=== PATIENT | female | born 1985 | race Caucasian/White ===

== ENCOUNTER 2019-10-31 13:14 | Emergency (ER) | payer BC ==
[2019-10-31 13:23] VITALS: BP 124/93; PULSE 76
[2019-10-31] MEDS ORDERED: fentaNYL 100 MCG/2 ML SDV ONE (13:32)
[2019-10-31] MEDS ORDERED: Dextrose 5%-0.9% NaCl 1,000 ML ONE (13:32)
[2019-10-31] MEDS ORDERED: Midazolam 1 MG/ML 2 ML SDV ONE (13:32)
[2019-10-31] MEDS ORDERED: Metoclopramide 10 MG/2 ML SDV IVPUSH ONE (13:40)
[2019-10-31] MEDS ORDERED: HYDROmorphone 1 MG/ML Syringe IVPUSH ONE (13:40)
--- NOTE | 2019-10-31 13:49 | EDM.PDOC ---
ED HPI GENERAL MEDICAL PROBLEM - General Chief Complaint: Lower Extremity Injury/Pain Stated Complaint: R FOOT INJURY Time Seen by Provider: 10/31/19 13:42 History Limitations: Reports: No Limitations - History of Present Illness INITIAL COMMENTS - FREE TEXT/NARRATIVE: 43-year-old female presents to the ED with an acute injury to her right ankle late last night. She slipped on the driveway on the way up to the house and fell to the ground. She recognized that her ankle was badly injured and she could not weight-bear. She may didn't arouse and slept fairly well overnight. This morning she could not move the leg at all due to the severity of the pain. She tended the walk-in clinic at [facility] and x-rays confirmed a trimalleolar fracture of her ankle with an anterior dislocation of the tibia on the talus. Patient hasn't had anything to eat or drink since yesterday. There is no open fracture. Patient denies any chance of . Onset: Sudden Onset Date: 10/30/19 Onset Time: 23:00 Duration: Hour(s): Location: Reports: Lower Extremity, Right (Right ankle injury) Quality: Reports: Ache, Throbbing Severity: Severe (8 out of 10) Improves with: Reports: Rest Worsens with: Reports: Movement Context: Reports: Trauma (Slipped and fell on the ice last night.). 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 Right Ankle Pain Score (Numeric/FACES): 8 - Related Data Allergies Allergy/AdvReac Type Severity Reaction Status Date / Time adhesive tape Allergy Mild Rash Verified 04/03/16 14:54 Home Meds: Home Meds Albuterol [Ventolin HFA] 18 g 10/31/19 [History] Past Medical History - Past Health History Medical/Surgical History: Denies Medical/Surgical History Cardiovascular History: Reports: Angina, Arrhythmia Respiratory History: Reports: Asthma (Mild asthma usually exercise-induced.) Gastrointestinal History: Reports: Hemorrhoids Genitourinary History: Reports: Pyelonephritis, UTI, Recurrent 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: Reports: Musculoskeletal History: Reports: None Neurological History: Reports: None Psychiatric History: Reports: None Endocrine/Metabolic History: Reports: None Hematologic History: Reports: None Immunologic History: Reports: None Oncologic (Cancer) History: Reports: None Dermatologic History: Reports: Benign Melanoma - Past Surgical History HEENT Surgical History: Reports: Adenoidectomy, Other (See Below) (onsillectomy) GI Surgical History: Reports: Other (See Below) (Hemorrhoidectomy) Dermatological Surgical History: Reports: Skin Biopsy Social & Family History - Family History Cardiac: Reports: NV - Tobacco Use Smoking Status *Q: Current Some Day Smoker Years of Tobacco use: 20 Packs/Tins Daily: 0.2 - Caffeine Use Caffeine Use: Reports: Coffee - Recreational Drug Use Recreational Drug Use: No - Living Situation & Occupation Living situation: Reports: Occupation: Employed Review of Systems - Review of Systems Review Of Systems: See Below Constitutional: Reports: No Symptoms Eyes: Reports: No Symptoms Ears: Reports: No Symptoms Nose: Reports: No Symptoms Mouth/Throat: Reports: No Symptoms Respiratory: Reports: No Symptoms, Other Cardiovascular: Reports: No Symptoms GI/Abdominal: Reports: No Symptoms (Occasional bouts of asthma usually with an upper respiratory tract infection or sometimes with exercise) Genitourinary: Reports: No Symptoms Musculoskeletal: Reports: Other Skin: Reports: No Symptoms (Acute injury to her right ankle last night shortly before midnight) Neurological: Reports: No Symptoms Psychiatric: Reports: No Symptoms ED EXAM, GENERAL - Physical Exam Exam: See Below Exam Limited By: No Limitations General Appearance: Alert, WD/WN, Mild Distress, Other (In obvious discomfort. Temperature is 37.3 with a pulse of 76 and sinus respiratory rate of 22 with sats of 97% on room air. BP is 124/93.) Eye Exam: Bilateral Eye: Normal Inspection, PERRL Ears: Normal TMs Throat/Mouth: Normal Inspection, Normal Lips (Tongue is mildly dry and coated.) , Normal Teeth, Normal Oropharynx (Tonsils are absent), Other Head: Atraumatic, Normocephalic, Other Neck: Normal Inspection, Supple (No overt signs of head or facial trauma), Non- Tender, Full Range of Motion. No: Lymphadenopathy (L), Lymphadenopathy (R) Respiratory/Chest: No Respiratory Distress, Lungs Clear, Normal Breath Sounds, No Accessory Muscle Use, Chest Non-Tender Cardiovascular: Normal Peripheral Pulses, Regular Rate, Rhythm, No Edema, No Gallop, No Murmur, No Rub Peripheral Pulses: 2+: Posterior Tibial (R), Dorsalis Pedis (R), 3+: Posterior Tibial (L), Dorsalis Pedis (L) GI/Abdominal: Normal Bowel Sounds, Soft, Non-Tender, No Organomegaly, No Abnormal Bruit, No Mass, Pelvis Stable Back Exam: Normal Inspection, Full Range of Motion. No: CVA Tenderness (L), CVA Tenderness (R) Extremities: Normal Inspection, Normal Range of Motion, Non-Tender, No Pedal Edema, Normal Capillary Refill, Other (Patient has an obvious deformity with marked swelling and ecchymoses of her right ankle both laterally and medially. Reveal a trimalleolar fracture with significant displacement of the distal tibia anteriorly on the talus) Neurological: Alert, Oriented, CN II-XII Intact, Normal Cognition Psychiatric: Normal Affect, Normal Mood Skin Exam: Warm, Dry, Intact, Normal Color, No Rash ED TRAUMA EXTREMITY PROCEDURES - Joint Reduction Site: Other Sedation: Conscious Sedation (Ankle) Pre-Procedure NV Status: Normal Post-Procedure NV Status: Normal Technique: Traction/Counter Traction Number of Attempts: 2 Post-Reduction Imaging: Unacceptably Reduced, Fracture Seen Joint Reduction Complications: No - Splinting Right Lower Extremity Splint Site: Below knee Pre-Procedure NV Status: Normal Post-Procedure NV Status: Normal Splint Material: Fiberglass Splint Design: Stirrup, Posterior Applied & Form Fitted By: Provider Provider Post-Splint Application NV Check: NV Status Normal Complications: No ED PROCEDURAL SEDATION - Pre Procedure Indications: fracture reduction Preparations: procedure explained, consent signed, RT in room, oxygen, continuous pulse oximeter, suction, continuous cardiac cath technician, constant attendance - Physical Exam Airway: normal anatomy Cardiovascular: normal heart sounds Respiratory: normal breath sounds Neurological: alert Meilampati Classification: 1 (soft palate, anterior/posterior tonsillar pillars , uvula visible) - Procedure Sedation Sedation: versed (parenteral), fentanyl (4 mg or micrograms given in 250 g doses) ASA Classification: 1 (Normal healthy patient) - Intra Procedure Condition during procedure: lightly sedated, oxygenation stable Complications: none Reversal: none - Post Procedure Condition after procedure: alert, NAD, responds to verbal stimuli - Discharge Condition Patient returned to pre-procedure baseline: Yes Course - Vital Signs Last Recorded V/S: Last Vital Signs Temp 37.3 C 10/31/19 13:22 Pulse 76 01/03/20 13:22 Resp 22 H 10/31/19 13:22 BP 124/93 H 10/31/19 13:22 Pulse Ox 97 10/31/19 13:22 - Orders/Labs/Meds Labs: Laboratory Tests 10/31/19 10/31/19 10/31/19 Range/Units 04:51 14:40 14:40 WBC 10.27 H (3.98-10.04) K/mm3 RBC 4.65 (3.98-5.22) M/mm3 Hgb 13.9 (11.2-15.7) gm/dl Hct 41.3 (34.1-44.9) % MCV 88.8 (79.4-94.8) fl MCH 29.9 (25.6-32.2) pg MCHC 33.7 (32.2-35.5) g/dl RDW Std Deviation 42.4 (36.4-46.3) fL Plt Count 257 (182-369) K/mm3 MPV 9.6 (9.4-12.3) fl Neut % (Auto) 72.8 H (34.0-71.1) % Lymph % (Auto) 17.9 L (19.3-51.7) % Sabine % (Auto) 8.6 (4.7-12.5) % Eos % (Auto) 0.3 L (0.7-5.8) Baso % (Auto) 0.2 (0.1-1.2) % Neut # (Auto) 7.48 H (1.56-6.13) K/mm3 Lymph # (Auto) 1.84 (1.18-3.74) K/mm3 Sabine # (Auto) 0.88 H (0.24-0.36) K/mm3 Eos # (Auto) 0.03 L (0.04-0.36) K/mm3 Baso # (Auto) 0.02 (0.01-0.08) K/mm3 PT 10.5 (9.7-12.0) SECONDS INR 0.96 APTT 25 (22-31) SECONDS Sodium 142 (136-145) mEq/L Potassium 3.6 (3.5-5.1) mEq/L Chloride 105 (98-107) mEq/L Carbon Dioxide 23 (21-32) mEq/L Anion Gap 17.6 H (5-15) BUN 9 (7-18) mg/dL Creatinine 0.8 (0.55-1.02) mg/dL Est Cr Clr Drug Dosing 96.36 mL/min Estimated GFR (MDRD) > 60 (>60) mL/min BUN/Creatinine Ratio 11.3 L (14-18) Glucose 128 H (74-106) mg/dL Calcium 8.7 (8.5-10.1) mg/dL Total Bilirubin 0.4 (0.2-1.0) mg/dL AST 16 (15-37) U/L ALT 24 (14-59) U/L Alkaline Phosphatase 71 (46-116) U/L Total Protein 7.3 (6.4-8.2) g/dl Albumin 3.7 (3.4-5.0) g/dl Globulin 3.6 gm/dL Albumin/Globulin Ratio 1.0 (1-2) HCG, Qual (NEGATIVE) 10/31/19 Range/Units 14:40 WBC (3.98-10.04) K/mm3 RBC (3.98-5.22) M/mm3 Hgb (11.2-15.7) gm/dl Hct (34.1-44.9) % MCV (79.4-94.8) fl MCH (25.6-32.2) pg MCHC (32.2-35.5) g/dl RDW Std Deviation (36.4-46.3) fL Plt Count (182-369) K/mm3 MPV (9.4-12.3) fl Neut % (Auto) (34.0-71.1) % Lymph % (Auto) (19.3-51.7) % Sabine % (Auto) (4.7-12.5) % Eos % (Auto) (0.7-5.8) Baso % (Auto) (0.1-1.2) % Neut # (Auto) (1.56-6.13) K/mm3 Lymph # (Auto) (1.18-3.74) K/mm3 Sabine # (Auto) (0.24-0.36) K/mm3 Eos # (Auto) (0.04-0.36) K/mm3 Baso # (Auto) (0.01-0.08) K/mm3 PT (9.7-12.0) SECONDS INR APTT (22-31) SECONDS Sodium (136-145) mEq/L Potassium (3.5-5.1) mEq/L Chloride (98-107) mEq/L Carbon Dioxide (21-32) mEq/L Anion Gap (5-15) BUN (7-18) mg/dL Creatinine (0.55-1.02) mg/dL Est Cr Clr Drug Dosing mL/min Estimated GFR (MDRD) (>60) mL/min BUN/Creatinine Ratio (14-18) Glucose (74-106) mg/dL Calcium (8.5-10.1) mg/dL Total Bilirubin (0.2-1.0) mg/dL AST (15-37) U/L ALT (14-59) U/L Alkaline Phosphatase (46-116) U/L Total Protein (6.4-8.2) g/dl Albumin (3.4-5.0) g/dl Globulin gm/dL Albumin/Globulin Ratio (1-2) HCG, Qual Negative (NEGATIVE) Meds: Medications Discontinued Medications Generic Name Dose Route Start Last Admin Trade Name Freq PRN Reason Stop Dose Admin Fentanyl Confirm 10/31/19 13:32 10/31/19 15:37 Sublimaze Administered 10/31/19 13:33 Not Given Dose 100 mcg .ROUTE .STK-MED ONE Fentanyl 100 mcg 10/31/19 15:35 10/31/19 14:20 Sublimaze IVPUSH 10/31/19 15:36 100 mcg ONETIME ONE Administration Hydromorphone HCl 1 mg 10/31/19 13:40 10/31/19 13:53 Dilaudid IVPUSH 10/31/19 13:41 1 mg ONETIME ONE Administration Dextrose/Sodium Chloride Confirm 10/31/19 13:32 10/31/19 15:37 Dextrose 5%-Normal Saline Administered 10/31/19 13:33 Not Given Dose 1,000 mls @ as directed .ROUTE .STK-MED ONE Dextrose/Sodium Chloride 1,000 mls @ 250 mls/hr 10/31/19 15:45 10/31/19 13:53 Dextrose 5%-Normal Saline IV 250 mls/hr ASDIRECTED TYE Administration Metoclopramide HCl 7.5 mg 10/31/19 13:40 10/31/19 13:51 Reglan IVPUSH 10/31/19 13:41 7.5 mg ONETIME ONE Administration Midazolam HCl Confirm 10/31/19 13:32 10/31/19 15:37 Versed 1 Mg/Ml Administered 10/31/19 13:33 Not Given Dose 6 mg .ROUTE .STK-MED ONE Midazolam HCl 5 mg 10/31/19 15:35 10/31/19 14:20 Versed 1 Mg/Ml IVPUSH 10/31/19 15:36 5 mg ONETIME ONE Administration - Radiology Interpretation Free Text/Narrative:: 33-year-old female presents the ED with an acute injury to her right ankle. She did attend [facility] [facility] walk-in clinic and they did x-rays which confirmed a trimalleolar fracture of her right ankle. Injury occurred late last night after playing darts she was dropped off at her home and slipped on the ice on the driveway on the way to her home. She recognized that she cannot weight-bear and hopped into the house and states that she slept fairly well until early this morning when her ankle awoke her with severe pain. Denies hurting anything else. Not ate or drank since last night. After reviewing the films the tibia is significantly anteriorly dislocated on the talus and reduction is in order. I will attempt this in the ED under conscious sedation. - Re-Assessments/Exams Free Text/Narrative Re-Assessment/Exam: 10/31/19 14:45: I attempted to reduce the ankle under the conscious sedation using 4 mg of Versed and 100 g of fentanyl and portable films reveal that the reduction was less than acceptable. Lysed the splint which was a posterior slab from the clinic which did not provide significant dorsiflexion of the ankle to maintain position. A stirrup splint was also placed. I therefore spoke with Dr. Herman orthopedic surgeon at [facility] and he has agreed to see her in the ED at that facility as long as she remains nothing by mouth with plan to take her to surgery tonight. Free Text/Narrative Re-Assessment/Exam: 10/31/19 15:27 Total white count is 10.27 with 73% neutrophils on the auto differential. Hemoglobin is 13.9 with hematocrit of 41.3. Platelet count 257, 000 PT is 10.5 with an INR of 0.96. PTT is 25. Sodium 142 with a potassium of 3.6. Chloride is 105 with a bicarbonate of 23. And a gap is mildly elevated at 17.6. BUN is 9 with a creatinine of 0.8. GFR is greater than 60. Glucose 128 with a calcium of 8.7. Liver function is completely normal. Total protein 7.3 with an albumin fraction of 3.7. A urinalysis was never obtained. She'll be transported to [facility] ER department to see Dr. Herman by private vehicle since her mom is already here and willing to transport her. At present RM once services already in [place]. 10/31/19 16;10; test done by serum is negative. Departure - Departure Time of Disposition: 15:07 Disposition: DC/Tfer to Acute Hospital 02 Condition: Fair Clinical Impression: Closed trimalleolar fracture Ankle fracture, right Qualifiers: Encounter type: initial encounter Fracture type: closed Qualified Code(s): S82.891A - Other fracture of right lower leg, initial encounter for closed fracture - Discharge Information Instructions: Ankle Fracture, [id number] Referrals: PCP,None [Primary Care Provider] - Forms: ED Department Discharge Additional Instructions: Evaluation the emergency room today after being seen in the walk-in clinic with an acute injury to your right ankle last evening as you were walking into the your house and slipped on the ice. X-rays done at the clinic revealed a trimalleolar fracture of her ankle which was confirmed in the ER. Attempts to reduce the anterior dislocation of the tibia on the talus were unsuccessful in the emergency department. I have therefore discussed the case with orthopedic surgeon Dr. Herman at [facility] in [place] and he wishes you to travel with nothing to eat or drink to the emergency department there with plans to go to surgery shortly thereafter. Sepsis Event Note - Evaluation Sepsis Screening Result: No Definite Risk - Focused Exam Vital Signs: Vital Signs Temp Pulse Resp BP Pulse Ox 10/31/19 13:22 37.3 C 76 22 H 124/93 H 97 Date Exam was Performed: 10/31/19 Time Exam was Performed: 19:08
[2019-10-31] MEDS ORDERED: fentaNYL 100 MCG/2 ML SDV IVPUSH ONE (15:35)
[2019-10-31] MEDS ORDERED: Midazolam 1 MG/ML 2 ML SDV IVPUSH ONE (15:35)
[2019-10-31] MEDS ORDERED: Dextrose 5%-0.9% NaCl 1,000 ML IV SCH (15:45)
--- NOTE | 2019-10-31 16:12 | CR ---
Right ankle: Three views of the right ankle were obtained. Comparison: No prior ankle study. Comminuted medial malleolus fracture is noted. Lateral malleolus fracture is also noted as well as posterior malleolus fracture. Tibia is mildly dislocated anteriorly in relation to the talus. Ankle mortise is also asymmetric. Soft tissue swelling is noted. Impression: 1. Bimalleolar fracture. 2. Mild anterior dislocation of the tibia in relation to the talus. 3. Soft tissue swelling. Diagnostic code #3 This report was dictated in [place] Standard Time
== END 2019-10-31 15:25 ==
LOC: JD.ED 13:14
DX: S82.851A Displaced trimalleolar fracture of right lower leg, initial encounter for closed fracture (principal); F17.210 Nicotine dependence, cigarettes, uncomplicated; Z91.09 Other allergy status, other than to drugs and biological substances; W00.0XXA Fall on same level due to ice and snow, initial encounter
CPT/HCPCS: 27818; 36415; 73600; 80053; 84703; 85025; 85610; 85730; 96361; 96374; 96375; 99152; 99284; J1170; J2250; J2765; J3010; J7042

== ENCOUNTER 2020-10-19 07:07 | Day surgery (SDC) | payer BC ==
[~2020-10-19 07:07] MED LIST: Albuterol 0.083% 2.5 MG/3 ML Neb Soln NEB ONE; Lactated Ringers 1,000 ML IV SCH; Lidocaine 1%/Sod Bicarbonate in NS 8.4% 1 ML Syringe IDERM PRN; Sodium Chloride 0.9% 10 ML Syringe FLUSH PRN
[2020-10-19] MEDS ORDERED: Bupivacaine 0.5% 10 ML SDV ONE (07:20)
[2020-10-19] MEDS ORDERED: Lidocaine 1% with EPINEPHrine 1:100,000 20 ML MDV ONE (07:20)
[2020-10-19] MEDS ORDERED: Sodium Chloride 0.9% 50 ML SDV ONE (07:20)
[2020-10-19] MEDS ORDERED: Ondansetron 4 MG/2 ML SDV IVPUSH PRN ×2 (07:26→08:57)
[2020-10-19] MEDS ORDERED: diphenhydrAMINE 50 MG/ML SDV IVPUSH PRN (07:26)
[2020-10-19] MEDS ORDERED: fentaNYL 100 MCG/2 ML SDV IVPUSH PRN (07:26)
--- NOTE | 2020-10-19 07:26 | PCM.PREANE ---
Preanesthetic Assessment - Procedure Proposed Procedure: Total Vaginal Hysterectomy with bilateral salpingectomy nexplanon removal - Anesthesia/Transfusion/Family Hx Anesthesia History: Prior Anesthesia Without Reaction Family History of Anesthesia Reaction: No Transfusion History: No Prior Transfusion(s) Type of Transfusion Reactions: Reports: Unknown Intubation History: Unknown - Review of Systems General: No Symptoms Pulmonary: Other (summer allergies not current ) Cardiovascular: No Symptoms Gastrointestinal: No Symptoms Neurological: No Symptoms Other: Reports: Anxiety - Physical Assessment NPO Status Date: 10/18/20 NPO Status Time: 19:00 Height: 1.7 m ASA Class: 2 Dentition: Reports: Normal Dentition Thyro-Mental Finger Breadths: 3 Mouth Opening Finger Breadths: 4 ROM/Head Extension: Full Lungs: Clear to Auscultation, Normal Respiratory Effort Cardiovascular: Regular Rate, Regular Rhythm - Allergies Allergies/Adverse Reactions: Allergies Allergy/AdvReac Type Severity Reaction Status Date / Time No Known Allergies Allergy Verified 10/18/20 15:26 - Blood Blood Available: No - Anesthesia Plan Pre-Op Medication Ordered: None - Acknowledgements Anesthesia Type Planned: General Anesthesia Pt an Appropriate Candidate for the Planned Anesthesia: Yes Alternatives and Risks of Anesthesia Discussed w Pt/Guardian: Yes Pt/Guardian Understands and Agrees with Anesthesia Plan: Yes PreAnesthesia Questionnaire - Past Health History Medical/Surgical History: Denies Medical/Surgical History HEENT History: Reports: Allergic Rhinitis Cardiovascular History: Reports: Angina, Arrhythmia Respiratory History: Reports: Asthma Gastrointestinal History: Reports: Hemorrhoids Genitourinary History: Reports: Pyelonephritis, STD, UTI, Recurrent, Other (See Below) Other Genitourinary History: irregular uterine bleeding [employer] C[employer] 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: , Other (See Below) Other OB/BYN History: irregular uterine bleeding, bacterial vaginosis, CINI, HPV, chlamydia, , tricamoniasis Musculoskeletal History: Reports: None Neurological History: Reports: None Psychiatric History: Reports: Anxiety Endocrine/Metabolic History: Reports: None Hematologic History: Reports: None Immunologic History: Reports: None Oncologic (Cancer) History: Reports: None Dermatologic History: Reports: Benign Melanoma - Infectious Disease History Infectious Disease History: Reports: None - Past Surgical History Head Surgeries/Procedures: Reports: None HEENT Surgical History: Reports: Adenoidectomy Cardiovascular Surgical History: Reports: None Respiratory Surgical History: Reports: None GI Surgical History: Reports: None Endocrine Surgical History: Reports: None Neurological Surgical History: Reports: None Musculoskeletal Surgical History: Reports: None Oncologic Surgical History: Reports: None Dermatological Surgical History: Reports: None, Skin Biopsy - SUBSTANCE USE Tobacco Use Status *Q: Current Every Day Tobacco User Recreational Drug Use History: Yes Recreational Drug Type: Reports: Marijuana/Hashish - HOME MEDS Home Medications: Home Meds Albuterol [Ventolin HFA] 1 - 2 puff INH Q4H PRN 10/31/19 [History] Ibuprofen 200 - 600 mg PO Q6H PRN 10/18/20 [History] - CURRENT (IN HOUSE) MEDS Current Meds: Current Medications Lactated Ringer's (Ringers, Lactated) 1,000 mls @ 125 mls/hr IV ASDIRECTED TYE Lidocaine/Sodium Bicarbonate (Buffered Lidocaine 1% In Ns 8.4%) 0.25 ml IDERM ONETIME PRN PRN Reason: Prior to IV Start Sodium Chloride (Saline Flush) 10 ml FLUSH ASDIRECTED PRN PRN Reason: Keep Vein Open Discontinued Medications Albuterol (Proventil Neb Soln) 2.5 mg NEB ONETIME ONE Stop: 10/19/20 00:02
[2020-10-19] MEDS ORDERED: HYDROmorphone 0.5 MG/0.5 ML Syringe IVPUSH PRN (07:27)
[2020-10-19] MEDS ORDERED: Scopolamine 1.5 MG Transdermal Patch TRDERM ONE (07:28)
[2020-10-19] MEDS ORDERED: Dexamethasone 4 MG/ML 5 ML MDV ONE (07:33)
[2020-10-19] MEDS ORDERED: Ondansetron 4 MG/2 ML SDV ONE (07:33)
[2020-10-19] MEDS ORDERED: Lidocaine 1% 4 ML ONE (07:33)
[2020-10-19] MEDS ORDERED: Rocuronium 50 MG/5 ML Vial ONE (07:33)
[2020-10-19] MEDS ORDERED: Midazolam 1 MG/ML 2 ML SDV ONE (07:34)
[2020-10-19] MEDS ORDERED: fentaNYL 250 MCG/5 ML SDV ONE (07:34)
[2020-10-19] MEDS ORDERED: HYDROmorphone 0.5 MG/0.5 ML Syringe ONE ×2 (07:34→08:35)
[2020-10-19] MEDS ORDERED: Propofol 200 MG/20 ML SDV ONE ×2 (07:37)
[2020-10-19] MEDS ORDERED: ceFAZolin 1 GM Vial ONE (08:09)
[2020-10-19] MEDS ORDERED: Ketamine 500 mg/10 ML MDV ONE (08:18)
[2020-10-19] MEDS ORDERED: Lactated Ringers 1,000 ML ONE (08:36)
[2020-10-19] MEDS ORDERED: Ketorolac 30 MG/ML SDV ONE (08:36)
[2020-10-19] MEDS ORDERED: Acetaminophen/oxyCODONE 325-5 MG Tab PO PRN (08:57)
--- NOTE | 2020-10-19 09:04 | PCM.OPNOTE ---
- General Post-Op/Procedure Note Date of Surgery/Procedure: 10/19/20 Operative Procedure(s): 1. Total vaginal hysterectomy with bilateral salpingectomy. 2. Removal of Nexplanon implant Findings: Uterus, tubes and ovaries were within normal appearance as far as visualization is concerned. Ovaries appeared functional bilaterally. Pre Op Diagnosis: 1. Irregular vaginal bleedingrefractory to medical therapy. 2. PAT-1 Post-Op Diagnosis: Same Anesthesia Technique: General ET Tube Other Anesthesia Type: Marcaine 0.5%-3 cc local, lidocaine quarter percent with [id number] cc Primary Surgeon: Jesus Saeed Secondary Surgeon: Nagi Shepherd Anesthesia Provider: Elina Hudson Reason Tour Escort Was Necessary: Retraction, assistance, patient safety, quality of care. Pathology: Uterus, bilateral fallopian tubes in one specimen container. Nexplanon implant was shown to the patient and then discarded. Fluid Replacement, Intraop: 1,000 EBL in mLs: 15 Complications: None Condition: Good Free Text/Narrative:: Surgery duration: 35 minutes Procedure: The patient was placed in supine position on the operating table. General endotracheal anesthesia was accomplished. After positioning, and adequate prep and drape, the procedure was then performed. Sterile speculum was placed in the vagina and cervix was visualized. Cervix was injected with lidocaine quarter percent with epinephrine-20 mL used. A full circumference incision was made in the cervical epithelium. The bladder was pushed well back off cervix. Posterior cul-de-sac was then entered sharply without problems. Left uterosacral was crossclamped with a Enseal vessel closure system. The left uterosacral and then the right uterosacral ligament pedicles were developed using the Enseal system. The anterior cul-de-sac was then entered without problems and the uterine vasculature, cardinal ligament and broad ligament then developed using Enseal vessel closure system. The uterus was inverted at this time and upper broad ligament fallopian tube pedicles were crossclamped with Ugo clamps. Specimen was totally removed. Both these pedicles were then secured with Enseal vessel closure system. Left and right fallopian tube was normal in appearance.. Using Enseal vessel closure system each of the tubes was then removed and sent with the specimen. The patient was found to be hemostatically intact at this time. Vaginal cuff was sutured for hemostatic reasons with a running locked suture of 0 Monocryl from the 2 o'clock position to the 10 o'clock position posteriorly. Vaginal cuff was then closed from right to left side with a running locked suture of 0 Monocryl. Nexplanon removal then was undertaken. The left arm was prepped in usual fashion for Nexplanon removal. There is draped in usual fashion. The area of the incision and underlying the Nexplanon implant was infiltrated with approximately 3 cc of Marcaine 0.5%. Using a #11 blade a small 2 to 3 mm incision was made. Using small hemostats the Nexplanon was grasped. Capsule overlying the Nexplanon implant was opened and Nexplanon was removed without problems. Incision site was closed with Dermabond skin glue and dressed with a folded 4 x 4 and elastic wrap. Patient was returned to supine position and awakened from general endotracheal anesthesia. She tolerated the procedure and left the operating room in satisfactory condition.
--- NOTE | 2020-10-19 09:13 | PCM.POSTAN ---
POST ANESTHESIA ASSESSMENT - MENTAL STATUS Mental Status: Other (drowsy) - VITAL SIGNS Vital Signs: 0906 103/75 99 2 L 71 13 97.4 Last Vital Signs Temp 36.2 C 10/19/20 07:00 Pulse 58 L 10/19/20 07:00 Resp 16 10/19/20 07:00 BP 105/66 10/19/20 07:00 Pulse Ox 97 10/19/20 07:00 - RESPIRATORY Respiratory Status: Respiratory Rate WNL, Airway Patent, O2 Saturation Stable, Supplemental Oxygen - CARDIOVASCULAR CV Status: Pulse Rate WNL, Blood Pressure Stable - GASTROINTESTINAL GI Status: No Symptoms - PAIN Pain Score: 0 - POST OP HYDRATION Hydration Status: Adequate & Stable
[2020-10-19 11:42] VITALS: BP 124/88; PULSE 63
[2020-10-19] MEDS ORDERED: [UNRECOGNIZED DRUG - REMARK] TRDERM ONE (12:00)
--- NOTE | 2020-10-19 13:33 | PCM48HPAN ---
Post Anesthesia Note - EVALUATION WITHIN 48HRS OF ANESTHETIC Vital Signs in Normal Range: Yes Patient Participated in Evaluation: Yes Respiratory Function Stable: Yes Airway Patent: Yes Cardiovascular Function Stable: Yes Hydration Status Stable: Yes Pain Control Satisfactory: Yes Nausea and Vomiting Control Satisfactory: Yes Mental Status Recovered: Yes Vital Signs: Last Vital Signs Temp 36.6 C 10/19/20 11:10 Pulse 63 10/19/20 11:10 Resp 16 10/19/20 11:10 BP 124/88 10/19/20 11:10 Pulse Ox 98 10/19/20 11:10
[2020-10-19] MEDS ORDERED: Ibuprofen 600 MG Tab PO PRN (14:30)
== END 2020-10-19 11:25 | disposition home or self-care (01) ==
LOC: JD.SDS 07:07
PROVIDERS: ATTEND Obstetrics & Gynecology
DX: N87.0 Mild cervical dysplasia (principal); N72 Inflammatory disease of cervix uteri; F41.9 Anxiety disorder, unspecified; J45.909 Unspecified asthma, uncomplicated; F17.210 Nicotine dependence, cigarettes, uncomplicated; Z79.899 Other long term (current) drug therapy; Z98.890 Other specified postprocedural states
CPT/HCPCS: 11982; 58262; A9270; J0690; J1100; J1170; J1885; J2001; J2250; J2405; J2704; J2710; J3010; J3490; J7120; 00944

== ENCOUNTER 2020-10-19 20:12 | Observation (INO) | payer BC ==
[2020-10-19] MEDS ORDERED: Lactated Ringers 1,000 ML IV ONE (20:51)
[2020-10-19] MEDS ORDERED: OXYCODONE PO PRN (21:52)
[2020-10-19] MEDS ORDERED: ACETAMINOPHEN PO PRN (21:52)
[2020-10-19] MEDS ORDERED: Ondansetron 4 MG/2 ML SDV IVPUSH PRN (21:52)
[2020-10-19] MEDS ORDERED: Ibuprofen 600 MG Tab ONE (21:56)
[2020-10-19] MEDS: Ibuprofen 600 MG Tab PO PRN (22:00)
[2020-10-19] MEDS ORDERED: Lactated Ringers 1,000 ML IV SCH ×2 (23:45)
[2020-10-20] MEDS ORDERED: Sodium Chloride 0.9% 10 ML Syringe FLUSH PRN (02:35)
[2020-10-20] MEDS: Ibuprofen 600 MG Tab PO PRN (04:39)
--- NOTE | 2020-10-20 06:48 | PCM.HP.2 ---
H&P History of Present Illness - General Date of Service: 10/19/20 Admit Problem/Dx: Admission Diagnosis/Problem Admission Diagnosis/Problem Vaginal bleeding Vaginal bleeding after total vaginal strict with bilateral salpingectomy done 10/19/2020 Source of Information: Patient History Limitations: Reports: No Limitations - History of Present Illness Initial Comments - Free Text/Narative: Cintia is a 34-year-old 2 para 2-0-0-2 white female underwent a total vaginal hysterectomy with bilateral salpingectomy on the morning of 10/19/2020. Surgery was uncomplicated and patient went home midmorning. After that she began having a small amount of vaginal bleeding. Throughout the day she used a total of 4 regular pads. Reports that she passed a clot which is between marble and golf ball size. On the evening of admission patient reported that she felt somewhat lightheaded. Because of that a friend attending to her called ambulance and patient was brought to the emergency room. Upon being seen in the emergency room patient is alert and oriented. Her pulse is in the 70s here. Blood pressure was borderline low. She was evaluated and found to have a 5 cc clot in the vagina. No active bleeding was noted from the vaginal cuff. The vaginal area was packed with a Kerlix sponge. Patient was monitored overnight. Please see admission history and physical from preoperative evaluation for surgery 10/19/2020 for details. No significant changes noted in history and physical other than above. Review of systems: In general patient has lightheadedness and bleeding as above upon initial evaluation. Skin: Negative Lungs: No infectious symptoms or shortness of breath Cardiovascular: No chest pain or exercise intolerance GI: Negative : Negative. Patient is voiding well. Musculoskeletal: Negative Neurological: Negative other than near syncopal episode patient experienced prior to being seen in the emergency room. Physical exam: In general the patient is well-developed, well-nourished, pleasant female of stated age in no acute distress. Time evaluation in ED patient is alert and oriented x3. Skin is warm dry without lesions. HEENT, neck and back within normal limits. Lungs are clear with good breath sounds in all lung au. Cardiovascular exam shows regular and rhythm without murmurs. Abdomen is flat, soft, nontender without masses or organomegaly. Positive bowel sounds are noted. No inguinal lymphadenopathy or hernias are noted. Considering patient had surgery within 12 hours preceding the evaluation patient is having minimal discomfort. No evidence of abdominal distention, internal bleeding. Patient specifically denies any significant pain and denies any shoulder pain neck pain or upper abdominal discomfort. Genital per speculum bimanual shows normal external genitalia, BUS, pubic hair pattern. There is normal support and estrogenization in the vagina. Uterus is surgically absent. The vaginal cuff appears intact and no bleeding is noted from the vaginal cuff. Bimanual exam showed no evidence of seroma, hematoma, abscess or other abnormalities. Patient tolerated procedure very well. Vaginal vault is packed with 3 inch Kerlix sponge. Extremities and neurological exam are grossly within normal limits. Abdomen Pain Score (Numeric/FACES): 3 - Related Data Allergies/Adverse Reactions: Allergies Allergy/AdvReac Type Severity Reaction Status Date / Time No Known Allergies Allergy Verified 10/19/20 07:40 Home Medications: Home Meds Albuterol [Ventolin HFA] 1 - 2 puff INH Q4H PRN 10/31/19 [History] Acetaminophen/oxyCODONE [Percocet 325-5 MG] 2 tab PO Q4H PRN tablet 10/19/20 [Rx] Amoxicillin 500 mg PO BID 10/19/20 [History] Ibuprofen [Motrin] 600 mg PO Q4H PRN tablet 10/19/20 [Rx] cephALEXin [Cephalexin] 500 mg PO BID 10/19/20 [History] Past Medical History - Past Health History Medical/Surgical History: Denies Medical/Surgical History HEENT History: Reports: Allergic Rhinitis Cardiovascular History: Reports: Angina, Arrhythmia Respiratory History: Reports: Asthma Gastrointestinal History: Reports: Hemorrhoids Genitourinary History: Reports: Pyelonephritis, STD, UTI, Recurrent, Other (See Below) Other Genitourinary History: irregular uterine bleeding [employer] History: Reports: , Other (See Below) Other OB/BYN History: irregular uterine bleeding, bacterial vaginosis, CINI, HPV, chlamydia, , tricamoniasis Musculoskeletal History: Reports: None Neurological History: Reports: None Psychiatric History: Reports: Anxiety Endocrine/Metabolic History: Reports: None Hematologic History: Reports: None Immunologic History: Reports: None Oncologic (Cancer) History: Reports: None Dermatologic History: Reports: Benign Melanoma - Infectious Disease History Infectious Disease History: Reports: None - Past Surgical History Head Surgeries/Procedures: Reports: None HEENT Surgical History: Reports: Adenoidectomy Cardiovascular Surgical History: Reports: None Respiratory Surgical History: Reports: None GI Surgical History: Reports: None Endocrine Surgical History: Reports: None Neurological Surgical History: Reports: None Musculoskeletal Surgical History: Reports: Other (See Below) Other Musculoskeletal Surgeries/Procedures:: surgery to Lachelle marrero this year in Oct 2019 for broken bones Oncologic Surgical History: Reports: None Dermatological Surgical History: Reports: None, Skin Biopsy Social & Family History - Family History Family Medical History: No Pertinent Family History Cardiac: Reports: [place] - Tobacco Use Tobacco Use Status *Q: Current Every Day Tobacco User Years of Tobacco use: 20 Packs/Tins Daily: 0.5 - Caffeine Use Caffeine Use: Reports: Coffee - Recreational Drug Use Recreational Drug Use: Yes Recreational Drug Type: Reports: Marijuana/Hashish Recreational Drug Use Frequency: Monthly - Living Situation & Occupation Living situation: Reports: Occupation: Employed H&P Review of Systems - Review of Systems: Review Of Systems: See Below Exam - Exam Exam: See Below - Vital Signs Vital Signs: Last Vital Signs Temp 36.5 C 10/20/20 04:32 Pulse 53 L 10/20/20 04:32 Resp 15 10/20/20 04:32 BP 83/52 L 10/20/20 04:32 Pulse Ox 96 10/20/20 04:32 Weight: 81.193 kg - Patient Data Lab Results Last 24 hrs: Laboratory Results - last 24 hr 10/19/20 10/19/20 10/19/20 Range/Units 20:47 20:47 20:47 WBC 20.46 H (3.98-10.04) K/mm3 RBC 3.84 L (3.98-5.22) M/mm3 Hgb 11.3 D (11.2-15.7) gm/dl Hct 35.4 (34.1-44.9) % MCV 92.2 (79.4-94.8) fl MCH 29.4 (25.6-32.2) pg MCHC 31.9 L (32.2-35.5) g/dl RDW Std Deviation 42.3 (36.4-46.3) fL Plt Count 299 (182-369) K/mm3 MPV 10.0 (9.4-12.3) fl Neut % (Auto) 88.6 H (34.0-71.1) % Lymph % (Auto) 5.8 L (19.3-51.7) % [place] % (Auto) 5.2 (4.7-12.5) % Eos % (Auto) 0 L (0.7-5.8) Baso % (Auto) 0.1 (0.1-1.2) % Neut # (Auto) 18.12 H (1.56-6.13) K/mm3 Lymph # (Auto) 1.19 (1.18-3.74) K/mm3 [place] # (Auto) 1.07 H (0.24-0.36) K/mm3 Eos # (Auto) 0.00 L (0.04-0.36) K/mm3 Baso # (Auto) 0.02 (0.01-0.08) K/mm3 Manual Slide Review Abnormal smear Sodium 137 (136-145) mEq/L Potassium 4.5 (3.5-5.1) mEq/L Chloride 104 (98-107) mEq/L Carbon Dioxide 26 (21-32) mEq/L Anion Gap 11.5 (5-15) BUN 10 (7-18) mg/dL Creatinine 1.1 H (0.55-1.02) mg/dL Est Cr Clr Drug Dosing 69.42 mL/min Estimated GFR (MDRD) 57 (>60) mL/min BUN/Creatinine Ratio 9.1 L (14-18) Glucose 155 H (74-106) mg/dL Calcium 8.5 (8.5-10.1) mg/dL Total Bilirubin 0.5 (0.2-1.0) mg/dL AST 9 L (15-37) U/L ALT 15 (14-59) U/L Alkaline Phosphatase 65 (46-116) U/L Total Protein 5.9 L (6.4-8.2) g/dl Albumin 2.8 L (3.4-5.0) g/dl Globulin 3.1 gm/dL Albumin/Globulin Ratio 0.9 L (1-2) Blood Type B POSITIVE Gel Antibody Screen Negative Result Diagrams: 10/19/20 20:47 10/19/20 20:47 Sepsis Event Note - Evaluation Sepsis Screening Result: No Definite Risk - Focused Exam Vital Signs: Vital Signs Temp Temp Pulse Pulse Resp BP BP 10/20/20 04:32 36.5 C 53 L 15 83/52 L 10/20/20 01:25 36.4 C 51 L 14 89/53 L 10/20/20 00:40 36.2 C 54 L 14 92/48 L 10/19/20 23:40 78/54 L 10/19/20 23:27 36.6 C 61 16 89/47 L 10/19/20 22:07 36.8 C 60 15 88/56 L 10/19/20 20:25 36.1 C 89 20 93/66 Pulse Ox 10/20/20 04:32 96 10/20/20 01:25 97 10/20/20 00:40 95 10/19/20 23:40 10/19/20 23:27 98 10/19/20 22:07 100 10/19/20 20:25 98 Problem List Initiated/Reviewed/Updated: Yes Orders Last 24hrs: Active Orders 24 hr Category Date Time Status Admission Status [Patient Status] [ADT] Routine ADT 10/19/20 20:39 Active Activity as Tolerated [RC] .Routine Care 10/19/20 21:00 Active Communication Order [RC] DAILY Care 10/19/20 21:00 Active Communication Order [RC] ONETIME Care 10/20/20 08:00 Active Intake and Output [RC] Q8HR Care 10/19/20 21:00 Active Vital Signs [RC] Q4HR Care 10/19/20 21:00 Active Adult Diet [DIET] Diet 10/20/20 Breakfast Active Acetaminophen/oxyCODONE [Percocet 325-5 MG] Med 10/19/20 21:52 Active 1 tab PO Q4H PRN Ibuprofen [Motrin] Med 10/20/20 21:52 Active 600 mg PO Q4H PRN Lactated Ringers [Ringers, Lactated] 1,000 ml Med 10/19/20 23:45 Active IV ASDIRECTED Lactated Ringers [Ringers, Lactated] 1,000 ml Med 10/19/20 23:45 Active IV ASDIRECTED Ondansetron [Zofran] Med 10/19/20 21:52 Active 4 mg IVPUSH Q4H PRN Sodium Chloride 0.9% [Saline Flush] Med 10/20/20 02:35 Active 10 ml FLUSH ASDIRECTED PRN Convert IV to Saline Lock [OM.PC] Routine Oth 10/19/20 21:52 Ordered Medication Orders Lactated Ringer's (Ringers, Lactated) 1,000 mls @ 999 mls/hr IV ASDIRECTED [facility] Last Admin: 10/19/20 23:50 Dose: 999 mls/hr Documented by: DONNY Lactated Ringer's (Ringers, Lactated) 1,000 mls @ 125 mls/hr IV ASDIRECTED [facility] Last Admin: 10/19/20 23:45 Dose: 125 mls/hr Documented by: DONNY Ibuprofen (Motrin) 600 mg PO Q4H PRN PRN Reason: Pain Last Admin: 10/20/20 04:39 Dose: 600 mg Documented by: Admin: 10/19/20 22:00 Dose: 600 mg Documented by: DONNY Ondansetron HCl (Zofran) 4 mg IVPUSH Q4H PRN PRN Reason: Nausea Oxycodone/Acetaminophen (Percocet 325-5 Mg) 1 tab PO Q4H PRN PRN Reason: Pain (moderate 4-6) Last Admin: 10/20/20 01:30 Dose: 1 tab Documented by: DONNY Sodium Chloride (Saline Flush) 10 ml FLUSH ASDIRECTED PRN PRN Reason: Keep Vein Open Assessment/Plan Comment:: 1. Reported vaginal discharge and near syncopal episode occurring later in the day of her surgery which included a total vaginal hysterectomy with bilateral salpingectomy. Patient stable at this time no evidence of bleeding noted. Hemoglobin is near normal and level. 2. Borderline blood pressures at this time but with normal pulse. Plan: 1. Admit to observation/extended surgical floor evaluation. 2. We will remove vaginal pack in the morning 3. IV fluids to maintain adequate hydration 4. Adequate postoperative analgesia.
--- NOTE | 2020-10-20 06:53 | PCM.DCSUM1 ---
Discharge Summary - Hospital Course Free Text/Narrative:: Cintia is a 34-year-old 2 para 2-0-0-2 white female admitted for observation last evening for complaints of near syncopal episode and vaginal bleeding after a surgery consistent with total vaginal hysterectomy with bilateral salpingectomy done on the a.m. of 10/19/2020. At this time patient is doing well. She has had minimal bleeding during the course of the night her blood pressures have been borderline low but patient is tolerating these well. Pulses been within normal limits in the 60s to 70s. She has no evidence of internal bleeding. Pain is under adequate control postoperatively. She is desiring discharge home. Diagnosis: Stroke: No - Discharge Data Discharge Date: 10/20/20 Discharge Disposition: Home, Self-Care 01 Condition: Good - Referral to Home Health Primary Care Physician: Jesus Saeed MD - Patient Instructions Diet: Regular Diet as Tolerated Activity: As Tolerated (No intercourse or tampons until bleeding resolves and patient seen back in clinic. No driving car or lifting greater than 15 pounds.) Driving: Do Not Drive Showering/Bathing: May Shower Showering/Bathing, Other: May take a bath Notify Provider of: Fever, Increased Pain, Swelling and Redness, Nausea and/or Vomiting - Discharge Plan Home Medications: Home Meds Albuterol [Ventolin HFA] 1 - 2 puff INH Q4H PRN 10/31/19 [History] Acetaminophen/oxyCODONE [Percocet 325-5 MG] 2 tab PO Q4H PRN tablet 10/19/20 [Rx] Ibuprofen [Motrin] 600 mg PO Q4H PRN tablet 10/19/20 [Rx] Forms: ED Department Discharge Referrals: Jesus Saeed MD [Primary Care Provider] - (Return to clinic[facility]. [facility]1 week.) - Discharge Summary/Plan Comment DC Time >30 min.: No Discharge Summary/Plan Comment: Discharge instructions: 1. Discharge home 2. Diet, activity and follow-up discussed with patient. 3. Precautions given concern increased pain, bleeding, temperature, signs/symptoms of DVT/PE. 4. Medications per home medication was printed, discussed with and given to the patient. 5. Return to clinic-Dr. Saeed[facility] in 1 week. Diagnosis: 1. Vaginal bleeding after hysterectomy-Resolved spontaneously 2. Near syncopal episode Condition: Good - Patient Data Vitals - Most Recent: Last Vital Signs Temp 36.5 C 10/20/20 04:32 Pulse 53 L 10/20/20 04:32 Resp 15 10/20/20 04:32 BP 83/52 L 10/20/20 04:32 Pulse Ox 96 10/20/20 04:32 Weight - Most Recent: 81.193 kg I&O - Last 24 hours: Intake & Output 10/19/20 10/19/20 10/20/20 14:59 22:59 06:59 Intake Total 750 Output Total 595 Balance 155 Lab Results - Last 24 hrs: Laboratory Results - last 24 hr 10/19/20 10/19/20 10/19/20 Range/Units 20:47 20:47 20:47 WBC 20.46 H (3.98-10.04) K/mm3 RBC 3.84 L (3.98-5.22) M/mm3 Hgb 11.3 D (11.2-15.7) gm/dl Hct 35.4 (34.1-44.9) % MCV 92.2 (79.4-94.8) fl MCH 29.4 (25.6-32.2) pg MCHC 31.9 L (32.2-35.5) g/dl RDW Std Deviation 42.3 (36.4-46.3) fL Plt Count 299 (182-369) K/mm3 MPV 10.0 (9.4-12.3) fl Neut % (Auto) 88.6 H (34.0-71.1) % Lymph % (Auto) 5.8 L (19.3-51.7) % [place] % (Auto) 5.2 (4.7-12.5) % Eos % (Auto) 0 L (0.7-5.8) Baso % (Auto) 0.1 (0.1-1.2) % Neut # (Auto) 18.12 H (1.56-6.13) K/mm3 Lymph # (Auto) 1.19 (1.18-3.74) K/mm3 [place] # (Auto) 1.07 H (0.24-0.36) K/mm3 Eos # (Auto) 0.00 L (0.04-0.36) K/mm3 Baso # (Auto) 0.02 (0.01-0.08) K/mm3 Manual Slide Review Abnormal smear Sodium 137 (136-145) mEq/L Potassium 4.5 (3.5-5.1) mEq/L Chloride 104 (98-107) mEq/L Carbon Dioxide 26 (21-32) mEq/L Anion Gap 11.5 (5-15) BUN 10 (7-18) mg/dL Creatinine 1.1 H (0.55-1.02) mg/dL Est Cr Clr Drug Dosing 69.42 mL/min Estimated GFR (MDRD) 57 (>60) mL/min BUN/Creatinine Ratio 9.1 L (14-18) Glucose 155 H (74-106) mg/dL Calcium 8.5 (8.5-10.1) mg/dL Total Bilirubin 0.5 (0.2-1.0) mg/dL AST 9 L (15-37) U/L ALT 15 (14-59) U/L Alkaline Phosphatase 65 (46-116) U/L Total Protein 5.9 L (6.4-8.2) g/dl Albumin 2.8 L (3.4-5.0) g/dl Globulin 3.1 gm/dL Albumin/Globulin Ratio 0.9 L (1-2) Blood Type B POSITIVE Gel Antibody Screen Negative Med Orders - Current: Current Medications Lactated Ringer's (Ringers, Lactated) 1,000 mls @ 999 mls/hr IV ASDIRECTED [facility] Last Admin: 10/19/20 23:50 Dose: 999 mls/hr Documented by: Lactated Ringer's (Ringers, Lactated) 1,000 mls @ 125 mls/hr IV ASDIRECTED [facility] Last Admin: 10/19/20 23:45 Dose: 125 mls/hr Documented by: Ibuprofen (Motrin) 600 mg PO Q4H PRN PRN Reason: Pain Last Admin: 10/20/20 04:39 Dose: 600 mg Documented by: Ondansetron HCl (Zofran) 4 mg IVPUSH Q4H PRN PRN Reason: Nausea Oxycodone/Acetaminophen (Percocet 325-5 Mg) 1 tab PO Q4H PRN PRN Reason: Pain (moderate 4-6) Last Admin: 10/20/20 01:30 Dose: 1 tab Documented by: Sodium Chloride (Saline Flush) 10 ml FLUSH ASDIRECTED PRN PRN Reason: Keep Vein Open Discontinued Medications Lactated Ringer's (Ringers, Lactated) 1,000 mls @ 999 mls/hr IV .BOLUS ONE Stop: 10/19/20 21:51 Last Admin: 10/19/20 20:54 Dose: 999 mls/hr Documented by: Ibuprofen (Motrin) Confirm Administered Dose 600 mg .ROUTE .STK-MED ONE Stop: 10/19/20 21:57 Last Admin: 10/20/20 04:55 Dose: Not Given Documented by:
[2020-10-20 08:51] VITALS: BP 89/48; PULSE 60
== END 2020-10-20 09:10 | disposition home or self-care (01) ==
LOC: JD.ED 20:12 → JD.OB 20:39
PROVIDERS: ADMIT Obstetrics & Gynecology; ATTEND Obstetrics & Gynecology
DX: N99.820 Postprocedural hemorrhage of a genitourinary system organ or structure following a genitourinary system procedure (principal); N93.9 Abnormal uterine and vaginal bleeding, unspecified; R55 Syncope and collapse; J45.909 Unspecified asthma, uncomplicated; F17.210 Nicotine dependence, cigarettes, uncomplicated
CPT/HCPCS: 36415; 80053; 85025; 86850; 86900; 86901; A9270; J7120